=== PATIENT | male | born 1980 | race Caucasian/White ===

== ENCOUNTER 2017-02-15 16:18 | Emergency (ER) | payer BC, OTHER ==
[2017-02-15 17:55] VITALS: BP 160/94
--- NOTE | 2017-02-19 06:33 | UC ---
Abdominal Pain Male HPI - HPI Summary HPI Summary: Pt here w/ RLQ lump and bruising over abdomen since blunt trauma to his abdomen from a wheel capitan grande handle 6 days ago. Was pushing wheel capitan grande through the yard when it stopped abruptly and he kept moving, handle pushing into RLQ. Pt reports he had to rest for a few minutes as this was painful. 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 Also reports he leaned into something against his ab which he believes triggered more bruising across lower ab. He reports he's been feeling better each day and lump that initially formed in RLQ has been getting smaller. Initially he had some change in urination and bowel movement, but these are back to normal w/o difficulty now. Denies N/V/D, hematuria. Eating and drinking well since. No previous issues w/ ab organs. Just here today to get checked out because his family was concerned. Denies pain today and past few days. No known bleeding d/o's and does not take anticoagulant medications. - History of Current Complaint Chief Complaint: UCTrauma Stated Complaint: FLANK & ABD INJURY Time Seen by Provider: 02/15/17 16:42 Hx Obtained From: Patient Pain Intensity: 0 Pain Scale Used: 0-10 Numeric - Allergies/Home Medications Allergies/Adverse Reactions: Allergies Allergy/AdvReac Type Severity Reaction Status Date / Time No Known Allergies Allergy Verified 02/16/17 18:07 Home Medications: Home Medications NK [No Home Medications Reported] 02/15/17 [History Confirmed 02/15/17] PMH/Surg Hx/FS Hx/Imm Hx Previously Healthy: Yes - Surgical History Surgical History: None - Family History Known Family History: Negative: Blood Disorder - Social History Occupation: Employed Full-time Lives: With Family Alcohol Use: Occasionally Substance Use Type: None Smoking Status (MU): Current Every Day Smoker Amount Used/How Often: 1/2 ppd Household Exposure Type: Cigarettes Review of Systems Constitutional: Negative Skin: Bruising - see HPI Respiratory: Negative Cardiovascular: Negative Gastrointestinal: Other - see HPI Genitourinary: Negative Motor: Negative Neurovascular: Negative Musculoskeletal: Negative Neurological: Negative Psychological: Negative All Other Systems Reviewed And Are Negative: Yes Physical Exam Triage Information Reviewed: Yes Appearance: Well-Appearing, No Pain Distress, Obese Vital Signs: Initial Vital Signs Temp 98.8 F 02/15/17 16:44 Resp 16 02/15/17 16:44 BP 156/83 02/15/17 16:44 Pulse Ox 98 02/15/17 16:44 Vital Signs Reviewed: Yes Eye Exam: Normal ENT Exam: Normal Respiratory Exam: Normal Cardiovascular Exam: Normal Abdomen Description: Positive: Nontender, Soft, Other: - 5cm firm, well defined mass over RLQ - no fever to touch, NTTP, no fluctuance, no d/c - surrounded by purpuric ecchymosis of Rt flank and all along lower ab/pelvic region - well defined line along waist band of pants. Negative: Distended, Guarding Musculoskeletal Exam: Normal Musculoskeletal: Positive: Strength Intact Neurological Exam: Normal Psychological Exam: Normal Skin Exam: Other - see above Abd Pain Male Course/Dx - Course Course Of Treatment: Pt presents w/ 6 day old ab injury which is improving each day and w/o GI sx. He appears to have a hematoma and subsequent skin bruising. Discussed we do not have imaging services here today to confirm clinical dx nor r/o more significant injury pathology -discussed option to better asses at ED. W / sx improving, he declines ED services today but agrees to f/u w/ PCP tomorrow and go to ED if danger s/sx present in the meantime. - Differential Dx/Clinical Impression Provider Diagnoses: RLQ hematoma s/p blunt trauma - Physician Notification/Consults Discussed Patient Care With: Dr. Griffith Discharge - Discharge Plan Condition: Stable Disposition: HOME Patient Education Materials: Hematoma (ED) Forms: *Work Release Referrals: No Primary Care Phys,NOPCP [Primary Care Provider] - Additional Instructions: Rest, ice alternating with heat Stop NSAID's (ie. Aspirin, aleve, naproxen, ibuprofen, advil) - may take acetaminophen 650mg every 6 hours for pain Follow-up with PCP in 1-2 days. *If you develop worsening pain, nausea, vomiting, testicular pain, flank pain, difficulty urinating/moving bowels, fever, chills, go to the ED
== END 2017-02-15 17:46 | disposition home or self-care (01) ==
LOC: UCEAST 16:18
DX: S30.1XXA Contusion of abdominal wall, initial encounter (principal); W22.8XXA Striking against or struck by other objects, initial encounter; Y93.89 Activity, other specified; Y92.9 Unspecified place or not applicable; E66.9 Obesity, unspecified; F17.210 Nicotine dependence, cigarettes, uncomplicated
CPT/HCPCS: 99202; G0463

== ENCOUNTER 2017-02-16 16:17 | Emergency (ER) | payer BC ==
[2017-02-16] MEDS ORDERED: NS 0.9% 1000 ML* 1,000 ML IV ONE (19:09)
[2017-02-16 19:38] LABS: Hematocrit 44 % (42-52); Hemoglobin 14.9 g/dl (14.0-18.0); Mean Corpuscular HGB Conc 34 g/dl (31-36); Mean Corpuscular Hemoglobin 33 pg (27-31); Mean Corpuscular Volume 96 fL (80-94); Mean Platelet Volume 7 um3 (7.4-10.4); Red Blood Count 4.56 10^6/ul (4.0-5.4); Red Cell Distribution Width 13 % (10.5-15); White Blood Count 10.7 10^3/ul (3.5-10.8)
[2017-02-16 19:59] LABS: Albumin 4.3 g/dL (3.2-5.2); BUN/Creatinine Ratio 14.3 (8-20); Calcium 9.3 mg/dL (8.6-10.3); EGFR African American 102.2 (>60); EGFR Non-African American 79.5 (>60); Globulin 2.3 g/dL (2-4); Magnesium 2.1 mg/dL (1.9-2.7); Total Bilirubin 0.4 mg/dL (0.2-1.0); Total Protein 6.6 g/dL (6.4-8.9)
[2017-02-16 20:05] LABS: Urine Bilirubin Negative (Negative); Urine Glucose Negative (Negative); Urine Nitrite Negative (Negative)
[2017-02-16] MEDS ORDERED: Iohexol 300* (CONTRAST) 10 ML SDV IV ONE (20:31)
--- NOTE | 2017-02-16 21:18 | RAD ---
INDICATION: Injury to right flank 1 week ago. Ecchymosis. Persistent pain. COMPARISON: None TECHNIQUE: Axial source images were obtained from the hemidiaphragms to the symphysis pubis following administration of oral and intravenous contrast. 139 mL Omnipaque 300 was utilized. Coronal and sagittal reconstructed images were acquired. Lung bases: The lung bases are clear. Liver: The liver is normal in size. There are no masses. There is no ductal dilatation. Gallbladder: There are no calcified gallstones. There is no evidence of wall thickening or pericholecystic fluid. Spleen: The spleen is normal in size. There are no masses. Pancreas: There is no focal pancreatic mass or ductal dilatation. Adrenal glands: There is no evidence of adrenal mass. Kidneys: The kidneys are normal in size and position. There are prompt nephrograms and there is prompt excretion bilaterally. There are no renal parenchymal masses. There is no evidence of nephrolithiasis. Adenopathy: There is no evidence of adenopathy by size criteria. Fluid collections: There are no free or localized fluid collections. Vessels:There are no significant atherosclerotic changes involving the aorta. There is no focal aneurysm. The iliac vessels are normal in caliber. The IVC appears normal. GI tract: There are no acute CT bowel findings. There is no obstruction. The stomach and small bowel appear normal. The lower GI tract is normal. The cecum, ileocecal valve, and terminal ileum appear normal. The appendix is visualized and appear normal. Pelvic organs: The prostate and seminal vesicles appear normal Bladder: There are no bladder masses. Abdominal and pelvic soft tissues: There is a subcutaneous hematoma in the right lower abdomen measuring 6.4 cm in cephalocaudal dimension and 2.7 x 5.9 cm in transverse dimensions. There is a small amount of adjacent subtalar is edema and skin induration. This is consistent with the clinical history of direct trauma. Osseous structures: There are no acute osseous findings. Other: None IMPRESSION: MODERATE SIZED SUBCUTANEOUS HEMATOMA RIGHT LOWER ABDOMEN. NO INTRAPERITONEAL ABNORMALITIES
--- NOTE | 2017-02-16 21:29 | ED ---
paige Ramirez Timothy, scribed for Shahab Dickinson MD on 02/16/17 at 1911 . Complex/Multi-Sys Presentation - HPI Summary HPI Summary: Shahab Norris is a 37 yo male presenting to [facility] with trauma to his right side from a wheelbarrow handle 02/06/17, presenting today per recommendation of a nurse. Per triage, there is bruising and swelling noted. He denies any use of blood thinners. He denies fever, hematuria, or any Hx of bleeding disorders. He has most recently self-medicated with ibprofen 02/15/17. His MHx includes low blood sugar a few years ago. - History Of Current Complaint Chief Complaint: EDTraumaMultiple Time Seen by Provider: 02/16/17 19:06 Hx Obtained From: Patient Onset/Duration: Sudden Onset, Lasting Weeks, Still Present Timing: Constant Severity Currently: Moderate Severity Initially: Moderate Associated Signs And Symptoms: Positive: Edema, Other - ecchymosis - Allergies/Home Medications Allergies/Adverse Reactions: Allergies Allergy/AdvReac Type Severity Reaction Status Date / Time No Known Allergies Allergy Verified 02/16/17 18:07 PMH/Surg Hx/FS Hx/Imm Hx Infectious Disease History: No Infectious Disease History: Denies: Traveled Outside the [place] in Last 30 Days - Family History Known Family History: Positive: Cardiac Disease, Hypertension, Diabetes Negative: Other - bleedin disorder - Social History Alcohol Use: Weekly Substance Use Type: Reports: None Smoking Status (MU): Heavy Every Day Tobacco Smoker Amount Used/How Often: 1/2 ppd Review of Systems Constitutional: Negative Negative: Fever Eyes: Negative ENT: Negative Cardiovascular: Negative Respiratory: Negative Gastrointestinal: Negative Genitourinary: Negative Negative: hematuria Musculoskeletal: Negative Positive: Bruising - and swelling of the right abdomen Neurological: Negative Psychological: Normal All Other Systems Reviewed And Are Negative: Yes Physical Exam Triage Information Reviewed: Yes Vital Signs On Initial Exam: Initial Vitals Temp Pulse Resp BP Pulse Ox 99.4 F 104 18 134/78 100 02/16/17 16:19 02/16/17 16:19 02/16/17 16:19 02/16/17 16:19 02/16/17 16:19 Vital Signs Reviewed: Yes Appearance: Positive: Well-Appearing, Pain Distress - mild discomfort Skin: Positive: Warm, Other - eechymotic area across lower abd with rt lat abd wall hematoma Head/Face: Positive: Normal Head/Face Inspection Eyes: Positive: LESTER ENT: Positive: Hearing grossly normal Neck: Positive: Supple Respiratory/Lung Sounds: Positive: Breath Sounds Present Cardiovascular: Positive: RRR Abdomen Description: Positive: Nontender, No Organomegaly, Soft Bowel Sounds: Positive: Present Musculoskeletal: Positive: Strength/ROM Intact Neurological: Positive: Alert, Oriented to Person Place, Time Psychiatric: Positive: Affect/Mood Appropriate - Danie Coma Scale Coma Scale Total: 15 Diagnostics - Vital Signs Vital Signs Temp Pulse Resp BP Pulse Ox 02/16/17 18:30 69 133/80 99 02/16/17 18:03 132/83 02/16/17 17:59 99.5 F 79 16 132/83 100 02/16/17 16:19 99.4 F 104 18 134/78 100 - Laboratory Lab Results: Lab Results 02/16/17 02/16/17 02/16/17 Range/Units 19:30 19:30 19:30 WBC 10.7 (3.5-10.8) 10^3/ul RBC 4.56 (4.0-5.4) 10^6/ul Hgb 14.9 (14.0-18.0) g/dl Hct 44 (42-52) % MCV 96 H (80-94) fL MCH 33 H (27-31) pg MCHC 34 (31-36) g/dl RDW 13 (10.5-15) % Plt Count 236 (150-450) 10^3/ul MPV 7 L (7.4-10.4) um3 Neut % (Auto) 50.7 (38-83) % Lymph % (Auto) 34.2 (25-47) % Moca % (Auto) 11.4 H (1-9) % Eos % (Auto) 2.7 (0-6) % Baso % (Auto) 1.0 (0-2) % Absolute Neuts (auto) 5.4 (1.5-7.7) 10^3/ul Absolute Lymphs (auto) 3.7 (1.0-4.8) 10^3/ul Absolute Monos (auto) 1.2 H (0-0.8) 10^3/ul Absolute Eos (auto) 0.3 (0-0.6) 10^3/ul Absolute Basos (auto) 0.1 (0-0.2) 10^3/ul Absolute Nucleated RBC 0 10^3/ul Nucleated RBC % 0 Sodium 137 (133-145) mmol/L Potassium 4.0 (3.5-5.0) mmol/L Chloride 104 (101-111) mmol/L Carbon Dioxide 29 (22-32) mmol/L Anion Gap 4 (2-11) mmol/L BUN 15 (6-24) mg/dL Creatinine 1.05 (0.67-1.17) mg/dL Est GFR ( Amer) 102.2 (>60) Est GFR (Non-Af Amer) 79.5 (>60) BUN/Creatinine Ratio 14.3 (8-20) Glucose 97 (70-100) mg/dL Lactic Acid 0.6 (0.5-2.0) mmol/L Calcium 9.3 (8.6-10.3) mg/dL Magnesium 2.1 (1.9-2.7) mg/dL Total Bilirubin 0.40 (0.2-1.0) mg/dL AST 20 (13-39) U/L ALT 18 (7-52) U/L Alkaline Phosphatase 79 (34-104) U/L Total Protein 6.6 (6.4-8.9) g/dL Albumin 4.3 (3.2-5.2) g/dL Globulin 2.3 (2-4) g/dL Albumin/Globulin Ratio 1.9 (1-3) Lipase 21 (11.0-82.0) U/L Urine Color Urine Appearance Urine pH (5-9) Ur Specific [place] (1.010-1.030) Urine Protein (Negative) Urine Ketones (Negative) Urine Blood (Negative) Urine Nitrate (Negative) Urine Bilirubin (Negative) Urine Urobilinogen (Negative) Ur Leukocyte Esterase (Negative) Urine Glucose (Negative) 02/16/17 Range/Units 19:45 WBC (3.5-10.8) 10^3/ul RBC (4.0-5.4) 10^6/ul Hgb (14.0-18.0) g/dl Hct (42-52) % MCV (80-94) fL MCH (27-31) pg MCHC (31-36) g/dl RDW (10.5-15) % Plt Count (150-450) 10^3/ul MPV (7.4-10.4) um3 Neut % (Auto) (38-83) % Lymph % (Auto) (25-47) % Moca % (Auto) (1-9) % Eos % (Auto) (0-6) % Baso % (Auto) (0-2) % Absolute Neuts (auto) (1.5-7.7) 10^3/ul Absolute Lymphs (auto) (1.0-4.8) 10^3/ul Absolute Monos (auto) (0-0.8) 10^3/ul Absolute Eos (auto) (0-0.6) 10^3/ul Absolute Basos (auto) (0-0.2) 10^3/ul Absolute Nucleated RBC 10^3/ul Nucleated RBC % Sodium (133-145) mmol/L Potassium (3.5-5.0) mmol/L Chloride (101-111) mmol/L Carbon Dioxide (22-32) mmol/L Anion Gap (2-11) mmol/L BUN (6-24) mg/dL Creatinine (0.67-1.17) mg/dL Est GFR ( Amer) (>60) Est GFR (Non-Af Amer) (>60) BUN/Creatinine Ratio (8-20) Glucose (70-100) mg/dL Lactic Acid (0.5-2.0) mmol/L Calcium (8.6-10.3) mg/dL Magnesium (1.9-2.7) mg/dL Total Bilirubin (0.2-1.0) mg/dL AST (13-39) U/L ALT (7-52) U/L Alkaline Phosphatase (34-104) U/L Total Protein (6.4-8.9) g/dL Albumin (3.2-5.2) g/dL Globulin (2-4) g/dL Albumin/Globulin Ratio (1-3) Lipase (11.0-82.0) U/L Urine Color Yellow Urine Appearance Clear Urine pH 5.0 (5-9) Ur Specific [place] 1.016 (1.010-1.030) Urine Protein Negative (Negative) Urine Ketones Negative (Negative) Urine Blood Negative (Negative) Urine Nitrate Negative (Negative) Urine Bilirubin Negative (Negative) Urine Urobilinogen Negative (Negative) Ur Leukocyte Esterase Negative (Negative) Urine Glucose Negative (Negative) Result Diagrams: 02/16/17 19:30 02/16/17 19:30 Lab Statement: Any lab studies that have been ordered have been reviewed, and results considered in the medical decision making process. - CT A/P CT Interpretation: Positive (See Comments) - IMPRESSION: MODERATE SIZED SUBCUTANEOUS HEMATOMA RIGHT LOWER ABDOMEN. NO INTRAPERITONEAL ABNORMALITIES CT Interpretation Completed By: Radiologist Re-Evaluation - Re-Evaluation First Eval Re-Evaluation Time: 21:21 Change: Unchanged Comment: Discussed lab and imaging results with Pt, he is agreeable to be discharged. Complex Multi-Symp Course/Dx Assessment/Plan: Shahab Norris is a 37 yo male presenting to [facility] with swelling and bruising of the right side of his abdomen S/P trauma to the area by a wheelbarrow handle 02/06/17. In the ED course he received IV fluids. His CT A/P suggests a moderate sized subcutaneous hematoma in the right lower abdomen with no intraperitoneal abnormalities. After clinical examination and review of his lab and imaging studies, he will be discharged home with abdominal hematoma with appropriate instructions. - Diagnoses Provider Diagnoses: Abdominal hematoma Discharge - Discharge Plan Condition: Stable Disposition: HOME Patient Education Materials: Hematoma (ED) Referrals: [facility] [place] [facility] REFERRAL [Outside] - 2 Days Additional Instructions: Please follow up with the primary care physician provided regarding your visit to the emergency department today. Return to the emergency department with any new or recurring symptoms. The documentation as recorded by the paige botello Timothy accurately reflects the service I personally performed and the decisions made by me, Shahab Dickinson MD.
[2017-02-16 21:52] VITALS: BP 105/90
== END 2017-02-16 21:54 | disposition home or self-care (01) ==
LOC: ED 16:17
DX: S30.1XXA Contusion of abdominal wall, initial encounter (principal); W22.8XXA Striking against or struck by other objects, initial encounter; Y92.9 Unspecified place or not applicable; F17.210 Nicotine dependence, cigarettes, uncomplicated
CPT/HCPCS: 36415; 74177; 80053; 81003; 83605; 83690; 83735; 85025; 96360; 99283; Q9967